=== PATIENT | female | born 1965 | race African-American/Black ===

== ENCOUNTER 2017-01-28 07:17 | Emergency (ER) | payer SELFPAY ==
[~2017-01-28] VITALS: Ht 162.6 cm; Wt 77.1 kg
[2017-01-28 07:25] VITALS: BP 150/90
[2017-01-28] MEDS ORDERED: HYDR-971 PO (07:39)
--- NOTE | 2017-01-28 07:39 | PHYS DOC ---
Past Medical History Past Medical History: Diabetes-Type II, Hypertension Past Surgical History: No Surgical History Alcohol Use: None Drug Use: None Adult General Chief Complaint Chief Complaint: MECHANICAL FALL HPI HPI Patient is a 51 year old female presenting to the emergency department for evaluation of right ankle and foot pain status post injury 1 week ago. She says that she was walking down a hill and hent an inversion injury and felt a pop. She said that she was still able to ambulate on a with a limp so did not seek any treatment at that time however she says that she continues to have pain and her ankle and foot is swollen. She says that she has not rested it put ice on it or elevated it. She has had some ibuprofen. Review of Systems Review of Systems Constitutional: Denies fever or chills [] Musculoskeletal: Denies back pain. + L ankle joint pain [] Integument: Denies open wounds Neurologic: Denies headache, focal weakness or sensory changes [] Allergies Allergies Allergies Coded Allergies Type Severity Reaction Last Updated Verified No Known Drug Allergies 01/28/17 No Physical Exam Physical Exam Constitutional: Well developed, well nourished, no acute distress, non-toxic appearance. [] Skin: Warm, dry, no erythema. Extremities: R ankle with pain on medial and lateral malleolus. No obvious deformity or swelling. Right foot with circumferential swelling that is moderate. No redness warmth or deformity. Normal DP pulse with intact sensation distally. Neurologic: Alert and oriented X 3, normal motor function, normal sensory function, no focal deficits noted. [] Current Patient Data Vital Signs Vital Signs Date Time Temp Pulse Resp B/P (MAP) Pulse Ox O2 Delivery O2 Flow Rate FiO2 01/28/17 07:25 98.2 79 16 99 Room Air 98.2 EKG EKG [] Course & Med Decision Making Course & Med Decision Making Right ankle x-ray shows fibular fracture that is in fairly good alignment but may require surgical fixation so she was put in a splint told to stay off of her ankle and follow with orthopedics later this week. Patient is neurovascularly intact status post posterior splint placement. Patient aware and agreeable with plan for discharge and verbalized understanding of the need for short-term follow-up and strict ER return precautions discussed, worsening pain weakness numbness tingling or other general concerns. Dragon Disclaimer Dragon Disclaimer This electronic medical record was generated, in whole or in part, using a voice recognition dictation system. Departure Departure Impression: Primary Impression: Closed fibular fracture Disposition: HOME, SELF-CARE Condition: GOOD Referrals: KIERSTEN ESPOSITO MD Patient Instructions: Ankle Fracture Additional Instructions: TAKE 400MG OF IBUPROFEN EVERY 6 HOURS AND THE PERCOCET FOR BREAKTHROUGH PAIN. ELEVATE YOU LEG, PUT ICE ON IT, REST YOU LEG. FOLLOW WITH THE ORTHO DOC LATER THIS WEEK. THANK YOU! Scripts Oxycodone/Apap 5-325 (PERCOCET 5-325 MG TABLET) 1 Each Tablet 1 TAB PO PRN Q6HRS Y for PAIN, #20 TAB 0 Refills Prov: BASIA DOUGLAS DO 01/28/17 Problem Qualifiers Primary Impression: Closed fibular fracture Encounter type: initial encounter Fibula location: distal Fracture morphology: unspecified fracture morphology Laterality: right Qualified Codes: S82.831A - Other fracture of upper and lower end of right fibula, initial encounter for closed fracture BASIA DOUGLAS DO January 28, 2017 07:39
[2017-01-28] MEDS ORDERED: OXYC-323 PO (07:56)
--- NOTE | 2017-01-28 07:58 | RAD ---
EXAM: Right ankle, 3 views; right foot, 3 views. HISTORY: Pain. COMPARISON: None. FINDINGS: Frontal, lateral and oblique views of the right foot and ankle are obtained. There is a mildly displaced oblique fracture of the distal fibular metaphysis. No additional fracture is seen. The ankle mortises intact. IMPRESSION: Mildly displaced oblique fracture the distal fibular metaphysis.
== END 2017-01-28 08:21 | disposition home or self-care (01) ==
LOC: ER 07:17
DX: S82.831A Other fracture of upper and lower end of right fibula, initial encounter for closed fracture (principal); E11.9 Type 2 diabetes mellitus without complications; I10 Essential (primary) hypertension; X50.9XXA Other and unspecified overexertion or strenuous movements or postures, initial encounter; Y93.01 Activity, walking, marching and hiking; Y99.8 Other external cause status; Y92.89 Other specified places as the place of occurrence of the external cause
CPT/HCPCS: 29515; 73610; 73630; 99284-25

== ENCOUNTER 2018-10-05 08:07 | Emergency (ER) | payer SELFPAY ==
[~2018-10-05] VITALS: Ht 160 cm; Wt 77.1 kg
[~2018-10-05 08:07] MED LIST: HYDR-3164 PO; OXYC1TAB15 PO
[2018-10-05 08:24] VITALS: BP 133/79
--- NOTE | 2018-10-05 08:27 | PHYS DOC ---
Past Medical History Past Medical History: Diabetes-Type II, Hypertension Past Surgical History: No Surgical History Alcohol Use: None Drug Use: None Adult General Chief Complaint Chief Complaint: TOE PROBLEM HPI HPI Patient is a 53 year old female with history of diabetes type 2, hypertension, who presents today complaining of mild right great toe pain that has been going on intermittently for 3 weeks. Patient describes the pain as sharp and intermittent. Patient denies anything specifically relieving the pain but states wearing high heels makes the pain worse. Denies any history of gout. Review of Systems Review of Systems Constitutional: Denies fever or chills [] Musculoskeletal: Right great toe pain Integument: Denies rash or skin lesions [] Neurologic: Denies headache, focal weakness or sensory changes [] All other systems were reviewed and found to be within normal limits, except as documented in this note. Allergies Allergies Allergies Coded Allergies Type Severity Reaction Last Updated Verified No Known Drug Allergies 01/28/17 No Physical Exam Physical Exam Constitutional: Well developed, well nourished, no acute distress, non-toxic appearance. [] Skin: Warm, dry, no erythema, no rash. [] Back: No tenderness, no CVA tenderness. [] Extremities: Right great toe nail with thickness consistent with onychomycosis. Right great toe with no obvious deformity. Full range of motion to the right great toe. +2 right pedal pulse. Cap refill less than 2 seconds the right toes. Neurologic: Alert and oriented X 3, normal motor function, normal sensory function, no focal deficits noted. [] Psychologic: Affect normal, judgement normal, mood normal. [] Current Patient Data Vital Signs Vital Signs Date Time Temp Pulse Resp B/P (MAP) Pulse Ox O2 Delivery O2 Flow Rate FiO2 10/05/18 08:24 98.3 69 16 133/79 (97) 100 Room Air 98.3 EKG EKG [] Radiology/Procedures Radiology/Procedures []PROCEDURE: FOOT RIGHT 3V EXAM: 3 views right foot DATE: 10/05/2018 8:41 AM INDICATION: CHRONIC RIGHT GREAT TOE PAIN COMPARISON: No Prior FINDINGS: No evidence of acute fracture or dislocation. Minimal degenerative change at the hallux MTP joint with small associated osteophytes. Otherwise joint spaces are preserved without significant degenerative/proliferative change. Mild soft tissue swelling about the right great toe, nonspecific. No definite retained foreign body. Old/healed fracture deformity of the distal fibula and likely tibia partially profiled. IMPRESSION: 1. No evidence of acute fracture or dislocation. 2. Mild soft tissue swelling about the right great toe 3. Minimal hallux MTP degenerative change with small osteophytes. Electronically signed by: Fredy Tapia MD (10/05/2018 9:04 AM) [facility] DICTATED and SIGNED BY: FREDY TAPIA MD DATE: 10/05/18 0903 Course & Med Decision Making Course & Med Decision Making Pertinent Labs and Imaging studies reviewed. (See chart for details) Patient has right great toe pain, no known injuries. Symptoms for 3 weeks. Right foot x-rays interpreted by radiologist were negative for any acute findings, noted for DJD of the right great toe MTP joint. Patient was discharged with Voltaren cream. Ice elevation encouraged. Discouraged from wearing high heels considering they put pressure on the toes. Follow-up with orthopedic doctor provided in 1-2 weeks. F/u with PCP for onychomycosis of the toe nails, she refused treatment for it stating she does not want to take any medications any more than what she has at home. Dragon Disclaimer Dragon Disclaimer This electronic medical record was generated, in whole or in part, using a voice recognition dictation system. 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 Try to ice and elevate the extremity, use the prescribed medications as ordered. Follow up with your primary care doctor for fungal infection on your great toes. Scripts Diclofenac Sodium (VOLTAREN) 100 Gm Gel..gram. 1 GM TP QID, #100 GM 2 Refills Prov: NICOLE OWENS APRN 10/05/18 Problem Qualifiers NICOLE OWENS APRN Oct 05, 2018 08:27
--- NOTE | 2018-10-05 09:09 | RAD ---
EXAM: 3 views right foot DATE: 10/05/2018 8:41 AM INDICATION: CHRONIC RIGHT GREAT TOE PAIN COMPARISON: No Prior FINDINGS: No evidence of acute fracture or dislocation. Minimal degenerative change at the hallux MTP joint with small associated osteophytes. Otherwise joint spaces are preserved without significant degenerative/proliferative change. Mild soft tissue swelling about the right great toe, nonspecific. No definite retained foreign body. Old/healed fracture deformity of the distal fibula and likely tibia partially profiled. IMPRESSION: 1. No evidence of acute fracture or dislocation. 2. Mild soft tissue swelling about the right great toe 3. Minimal hallux MTP degenerative change with small osteophytes. Electronically signed by: Fredy Tapia MD (10/05/2018 9:04 AM) [facility]
[2018-10-05] MEDS ORDERED: DICL100G18 TP (09:29)
== END 2018-10-05 09:39 | disposition home or self-care (01) ==
LOC: ER 08:07
DX: B35.1 Tinea unguium (principal); M19.071 Primary osteoarthritis, right ankle and foot; E11.9 Type 2 diabetes mellitus without complications; I10 Essential (primary) hypertension
CPT/HCPCS: 73630; 99283